=== PATIENT | male | born 1995 | race Caucasian/White ===

== ENCOUNTER 2025-08-30 12:26 | Emergency (ER) | payer SELFPAY ==
[~2025-08-30] VITALS: Ht 177.8 cm; Wt 60.8 kg
[~2025-08-30 12:26] MED LIST: NAPROSYN500 MG PO
[2025-08-30] MEDS ORDERED: diazePAM 10 MG/2 ML SYR IM ONE (12:45)
[2025-08-30 12:51] LABS: MEAN CELL VOLUME 84.9 fl (80.0-94.0); MEAN CORPUSCULAR HGB 28.9 pg (27.0-31.0); MEAN PLATELET VOLUME 11.8 fl (9.6-12.3); NUCLEATED RED BLOOD CELL 0.0 % (0.0-0.0); NUCLEATED RED BLOOD CELL 0.0 10*3/uL (0.0-0.0); PLATELET COUNT AUTOMATED 207 10*3/uL (130-400); RED CELL DISTRI WIDTH 12.8 % (0-14.5)
[2025-08-30 12:58] LABS: MANUAL DIFF REFLEX YES
[2025-08-30 13:18] LABS: PLATELET SUFFICIENCY NORMAL (NORMAL)
[2025-08-30 13:20] LABS: BUN 12 mg/dl (9-23)
[2025-08-30 13:51] LABS: BILIRUBIN Negative (Negative); BLOOD Negative (Negative); CLARITY Clear (Clear); COLOR Yellow (Yellow); KETONE 1+ (Negative); LEUKO ESTERASE Negative (Negative); NITRITE Negative (Negative); PH 6.0 (4.5-8.0); SPECIFIC GRAVITY <= 1.005 (1.001-1.030); UROBILINOGEN 0.2 E.U./dl (0.0-1.0)
[2025-08-30 13:58] LABS: URINE AMPHETAMINES Negative (1000ng/ml); URINE BARBITURATES Negative (200ng/ml); URINE BENZODIAZEPINES Negative (200ng/ml); URINE CANNABINOIDS (THC) Positive (50ng/ml); URINE COCAINE Negative (300ng/ml); URINE METHADONE Negative (300ng/ml); URINE OPIATES Negative (300ng/ml); URINE PHENCYCLIDINE Negative (25ng/ml)
[2025-08-30 14:17] LABS: BACTERIA TRACE
== END 2025-08-30 14:29 | disposition home or self-care (01) ==
LOC: ED 12:26
PROVIDERS: Nurse Practitioner Family
DX: F41.9 Anxiety disorder, unspecified (principal); F32.A Depression, unspecified